=== PATIENT | female | born 1950 | race Caucasian/White ===

== ENCOUNTER 2018-09-23 02:35 | Observation (INO) | payer BC ==
[~2018-09-23] VITALS: Ht 157.5 cm; Wt 82.0 kg
[~2018-09-23 02:35] MED LIST: CALC600T7 PO; DOCU10CA PO; LEVO50TA45 PO; LORT1TAB PO; MULTCAP PO; NAPR-885 PO; OXYC-141 PO; PHEN15CA PO; TYLE325T5 PO; VITA100067 PO
[2018-09-23 03:00] LABS: BASO # 0.1 10^3/uL (0.0-0.2); BASO % 0.9 % (0.0-1.0); EOS # 0.3 10^3/uL (0.0-0.50); EOS % 3.1 % (0.0-3.0); HEMATOCRIT 45.5 % (36.0-47.0); HEMOGLOBIN 14.9 g/dl (12.0-15.5); LYMPH % 24.8 % (24.0-44.0); MEAN CORPUSCULAR HGB CONC 32.7 g/dl (32.0-36.5); MEAN CORPUSCULAR VOLUME 88.7 fl (80.0-96.0); MONO # 0.5 10^3/uL (0.0-0.8); MONO % 6.1 % (0.0-5.0); NEUTROPHILS # 5.2 10^3/uL (1.8-7.7); NEUTROPHILS % 64.5 % (36.0-66.0); PLATELET COUNT, AUTOMATED 350 10^3/uL (150-450); RED BLOOD COUNT 5.13 10^6/uL (4.00-5.40)
[2018-09-23] MEDS ORDERED: PANTOPRAZOLE 40MG INJ (PROTONIX) (C9113) IV ONE (03:15)
[2018-09-23] MEDS ORDERED: ONDANSETRON 4MG/2ML VIAL (J2405) IV ONE (03:15)
[2018-09-23] MEDS ORDERED: NS 1,000 ML IV ONE (03:15)
[2018-09-23 03:30] LABS: INR 1.06; PROTHROMBIN TIME 13.9 SECONDS (12.1-14.4)
[2018-09-23 03:31] LABS: PARTIAL THROMBOPLASTIN TIME 30.3 SECONDS (25.4-37.6)
[2018-09-23 03:39] LABS: ALBUMIN 3.2 GM/DL (3.2-5.2); ALT/SGPT 29 U/L (12-78); BILIRUBIN,DIRECT < 0.1 MG/DL (0.0-0.2); BILIRUBIN,TOTAL 0.1 MG/DL (0.2-1.0); BLOOD UREA NITROGEN 12 MG/DL (7-18); CARBON DIOXIDE LEVEL 28 MEQ/L (21-32); CHLORIDE LEVEL 108 MEQ/L (98-107); CREATININE FOR GFR 0.82 MG/DL (0.55-1.30); GLOMERULAR FILTRATION RATE > 60.0 (>45); GLUCOSE, FASTING 145 MG/DL (70-100); LIPASE 116 U/L (73-393); POTASSIUM SERUM 3.8 MEQ/L (3.5-5.1); SODIUM LEVEL 144 MEQ/L (136-145); TOTAL PROTEIN 7.2 GM/DL (6.4-8.2)
[2018-09-23] MEDS ORDERED: ZOFR4TAB16 PO (04:53)
[2018-09-23] MEDS ORDERED: PROT1TAB2 PO (04:53)
[2018-09-23] MEDS ORDERED: D5W/0.9% SODIUM CHLORIDE 1,000 ML IV SCH (05:37)
[2018-09-23] MEDS ORDERED: ACETAMINOPHEN TAB 650MG DOSE (2X325MG) PO PRN (05:45)
[2018-09-23] MEDS ORDERED: MAALOX 30 ML SUSP *UDC PO PRN (05:45)
[2018-09-23] MEDS ORDERED: MOM 30ML SUSPENSION UDC PO PRN (05:45)
[2018-09-23] MEDS ORDERED: VITMTA PO (05:48)
[2018-09-23] MEDS ORDERED: IBUP-1091 PO (05:48)
[2018-09-23] MEDS ORDERED: FISH1000 PO (05:48)
[2018-09-23] MEDS ORDERED: NP T30TA PO (05:48)
--- NOTE | 2018-09-23 06:06 | HPEPDOC ---
General Date of Admission September 23, 2018 at 02:36 Chief Complaint The patient is a 68-year-old female admitted with a reason for visit of Upper Gi Bleed. Source: Patient, RN/MD History of Present Illness Ms Monae is a 68 years old relatively healthy woman who presented to ER for evaluation of hematemesis. Pt states that she drink once a week, about 4-6 shots of vodka. She had 4 shots of Vodka last night; then she was nauseated and vomited bright red blood twice; total amount about half a cup. She denies abdominal pain, dizziness or any other problem. Pt denies previous hx/o hematemesis; denies excessive use of NSAID. She reports taking one pill of Motrin three days ago. in the ER, pt was mentally and hemodynamically stable; had no further episode of bleeding; Hb good at 14.9; guaiac negative. MD contacted Dr. Randolph who recommended observation in the hospital and endoscopy in the morning. Home Medications Scheduled Multivitamins (Thera M Plus Tablet) 1 Each Tablet, 1 TAB PO DAILY, (Reported) [place]-3 Fatty Acids/Fish Oil (Fish Oil 1,000 mg Capsule) 1 Each Capsule, 1,000 MG PO DAILY, (Reported) Thyroid,Pork (Sample Dye Mixer Thyroid) 30 Mg Tablet, 30 MG PO DAILY, (Reported) Scheduled PRN Ibuprofen (Ibuprofen) 200 Mg Tablet, 400 MG PO Q6H PRN for PAIN / FEVER, (Reported) Allergies Coded Allergies: Sulfa (Sulfonamide Antibiotics) (Verified Allergy, Unknown, rash, 09/23/18) TAPE (Verified Allergy, Unknown, rash, 09/23/18) oxycodone (Verified Adverse Reaction, Unknown, vomitting, 09/23/18) Past Medical History Medical History Hypothyroidism, Chronic Back pain Surgical History Cholecystectomy, Hysterectomy Family History Significant Family History: No pertinent family hx Social History * Smoker: Denies Alcohol: occationally Drugs: denies A-FIB/CHADSVASC A-FIB History Current/History of A-Fib/PAF?: No Review of Systems Constitutional: Denies: Chills, Fever Eyes: Denies: Pain ENT: Denies: Head Aches Skin: Denies: Rash, Lesions Pulmonary: Denies: Dyspnea, Cough Cardiovascular: Denies: Chest Pain Gastrointestinal: Reports: Nausea, Vomiting, Other Symptoms (hematemesis) Genitourinary: Denies: Dysuria Musculoskeletal: Reports: Back Pain (chronic); Denies: Neck Pain Neurological: Denies: Weakness Psych: Reports: Mood Normal; Denies: Anxiety Vital Signs Vital Signs Date Time Temp Pulse Resp B/P (MAP) Pulse Ox O2 Delivery O2 Flow Rate FiO2 09/23/18 05:35 84 18 143/73 (96) 96 09/23/18 04:30 98.8 09/23/18 02:55 Room Air Laboratory Data Labs 24H Laboratory Tests 2 09/23/18 02:51: Immature Granulocyte % (Auto) 0.6, White Blood Count 8.0, Red Blood Count 5.13, Hemoglobin 14.9, Hematocrit 45.5, Mean Corpuscular Volume 88.7, Mean Corpuscular Hemoglobin 29.0, Mean Corpuscular Hemoglobin Concent 32.7, Red Cell Distribution Width 12.9, Platelet Count 350, Neutrophils (%) (Auto) 64.5, Lymphocytes (%) (Auto) 24.8, Monocytes (%) (Auto) 6.1H, Eosinophils (%) (Auto) 3.1H, Basophils (%) (Auto) 0.9, Neutrophils # (Auto) 5.2, Lymphocytes # (Auto) 2.0, Monocytes # (Auto) 0.5, Eosinophils # (Auto) 0.3, Basophils # (Auto) 0.1, Nucleated Red Blood Cells % (auto) 0.0, Prothrombin Time 13.9, Prothromb Time International Ratio 1.06, Activated Partial Thromboplast Time 30.3, Anion Gap 8, Glomerular Filtration Rate > 60.0, Calcium Level 8.0L, Aspartate Amino Transf (AST/SGOT) 20, Alanine Aminotransferase (ALT/SGPT) 29, Alkaline Phosphatase 87, Total Bilirubin 0.1L, Direct Bilirubin < 0.1, Total Protein 7.2, Albumin 3.2, Albumin/Globulin Ratio 0.80L, Lipase 116 CBC/BMP Laboratory Tests 09/23/18 02:51 Red Blood Count 5.13, Mean Corpuscular Volume 88.7, Mean Corpuscular Hemoglobin 29.0, Mean Corpuscular Hemoglobin Concent 32.7, Red Cell Distribution Width 12.9, Neutrophils (%) (Auto) 64.5, Lymphocytes (%) (Auto) 24.8, Monocytes (%) (Auto) 6.1 H, Eosinophils (%) (Auto) 3.1 H, Basophils (%) (Auto) 0.9, Neutrophils # (Auto) 5.2, Lymphocytes # (Auto) 2.0, Monocytes # (Auto) 0.5, Eosinophils # (Auto) 0.3, Basophils # (Auto) 0.1 Assessment/Plan Hematemesis (pt denies heavy drinking or heavy NSAID use) - Keep on Observation - NPO; IV fluid; IV PPI; Thiamine - Repeat H/H - GI consult; Endoscopy in the morning - Further treatment plan based on endoscopy and whether pt has more episodes of bleeding - Hold home meds for now - CIWA monitoring as a caution Plan / VTE VTE Prophylaxis Ordered?: No VTE Exclusion Mechanical Proph: N/A:VTE Prophy Ordered VTE Exclusion Pharmacological: Active Bleeding Plan Anticipated Discharge: Home SHELIA GUDINO MD September 23, 2018 06:06
[2018-09-23] MEDS ORDERED: THIAMINE HCL 200 MG/2 ML VIAL (J3411) IV ONE (06:15)
[2018-09-23 07:52] VITALS: BP 164/75
[2018-09-23] MEDS ORDERED: PANT40TA3 PO (10:58)
--- NOTE | 2018-09-23 13:39 | DSES ---
DATE OF ADMISSION: 09/23/2018 DATE OF DISCHARGE (AGAINST MEDICAL ADVICE): 09/23/2018 The patient presented after hematemesis while consuming excessive alcohol. She was admitted by Dr. Pickering early this a.m. and was scheduled to have an endoscopy today nothing by mouth (n.p.o.) and was on IV proton pump inhibitor (PPI) therapy. Shortly upon arriving to [address] [place] [address], I was notified by nursing that the patient wished to leave the hospital against medical advice. I did urgently visit the patient and inform her that leaving the hospital while actively bleeding she would likely not make it far and would have to come back. I expressed to her that if she continues to bleed she will likely hemorrhage and and informed her that it is unclear if she is stable and strongly recommended against leaving or having an attempt to manage this from an outpatient setting. She demonstrated good understanding and asked appropriate questions. She still elected to leave the hospital against medical advice. She denied providing me an opportunity to arrange for safe disposition. I have advised her not taking ibuprofen and did send a script for pantoprazole to her pharmacy. I did advise her to followup with her primary care provider as soon as possible and that she would likely still need an upper endoscopy. I did advise her that should she have continued bleeding, lightheadedness, dizziness, or feeling unwell, that she should certainly return back to the emergency room for reevaluation. She demonstrated good understanding of this and unfortunately elected to leave the hospital against medical advice.
[2018-09-23] MEDS ORDERED: PANTOPRAZOLE 40MG INJ (PROTONIX) (C9113) IV SCH (18:00)
[2018-09-24] MEDS ORDERED: THIAMINE HCL 200 MG/2 ML VIAL (J3411) IV SCH (09:00)
== END 2018-09-23 09:19 | disposition left against medical advice (07) ==
LOC: M ED 02:35 → M ED INP 02:36 → M MSPAV 07:51
PROVIDERS: ADMIT Internal Medicine; ATTEND Internal Medicine
DX: K92.2 Gastrointestinal hemorrhage, unspecified (principal); Z53.20 Procedure and treatment not carried out because of patient's decision for unspecified reasons; E03.9 Hypothyroidism, unspecified; M54.5 Low back pain; Z79.899 Other long term (current) drug therapy; F10.10 Alcohol abuse, uncomplicated; Z88.2 Allergy status to sulfonamides; Z88.8 Allergy status to other drugs, medicaments and biological substances
CPT/HCPCS: 36415; 80048; 80076; 83690; 85025; 85610; 85730; 86850; 86900; 86901; 93041; 96361; 96374; 96375; 99285; C9113; J2405; J3411

== ENCOUNTER 2020-05-07 16:09 | Emergency (ER) | payer BC ==
[~2020-05-07] VITALS: Ht 157.5 cm; Wt 80.0 kg
[~2020-05-07 16:09] MED LIST changes: +CALC-212 PO; -CALC600T7 PO; +FISH1000 PO; +IBUP-1720 PO; +NP T30TA PO; +PANT40TA29 PO; +PROT1TAB2 PO; +VITMTA PO; +ZOFR4TAB16 PO
[2020-05-07] MEDS ORDERED: TETRACAINE 0.5% OPHTH SOLN 4ML OU ONE (17:30)
[2020-05-07] MEDS ORDERED: FLUORESCEIN OPHTH 1 MG STRIP OU ONE (17:30)
[2020-05-07] MEDS ORDERED: CIPROFLOXACIN 0.3% OPHTH SOLN 2.5ML OD ONE (17:45)
[2020-05-07] MEDS ORDERED: CIPR0.3S6 OD (17:48)
[2020-05-07 17:54] VITALS: BP 169/77
== END 2020-05-07 18:05 | disposition home or self-care (01) ==
LOC: M ED 16:09
DX: S05.01XA Injury of conjunctiva and corneal abrasion without foreign body, right eye, initial encounter (principal); W26.8XXA Contact with other sharp object(s), not elsewhere classified, initial encounter; Y92.019 Unspecified place in single-family (private) house as the place of occurrence of the external cause; Y93.89 Activity, other specified; Y99.9 Unspecified external cause status

== ENCOUNTER → 2020-05-27 | Outpatient (CLI) | payer BC ==
[~2020-05-27] MED LIST changes: +CIPR0.3S6 OD
== END ==
LOC: M LABSMTC 11:30
PROVIDERS: ATTEND Family Medicine
DX: Z20.822 Contact with and (suspected) exposure to COVID-19 (principal)

== ENCOUNTER → 2021-02-05 | Outpatient (CLI) | payer BC ==
--- NOTE | 2021-02-05 11:30 | REP ---
INDICATION: [facility] SCREEN MAMMO FOR MALIGNANT NEOPLASM OF BREAST. COMPARISON: Multiple TECHNIQUE: Digital screening mammography was carried out bilaterally in the CC and MLO projections and compared to the prior exams. Both 2D and 3D modalities were utilized. By history, the patient has no complaints of a palpable breast abnormality or other significant breast complaints. FINDINGS: The breasts are unchanged in size and shape. Stable benign calcifications are seen bilaterally. There is a potential area of asymmetry seen in the left breast at 12 o'clock. No other suspicious features are seen in either breast. The Volpara volumetric breast density pattern is b. IMPRESSION: BIRADS/ACR category 0 mammogram. Possible bryce asymmetry seen in the left breast at 12 o'clock for which diagnostic digital DBT spot compression views are recommended in the CC and MLO projections along with diagnostic ultrasonography if necessary. This patient's Tyrer-Cuzick lifetime breast cancer risk assessment score is 2.3%. This mammogram was interpreted with the aid of an FDA-approved computer-aided detection system. The patient states she had a clinical breast exam in over a year. The patient letter being requested is M0. RECOMMENDATION: As above <Electronically signed by Micheal Valencia > 02/05/21 1126
--- NOTE | 2021-02-05 16:23 | DEXAMM ---
INDICATION: OTHER DISORDER BONE DENSITY AND STRUCTURE UNSPEC SITE. L4-5 lumbar spine fusion hardware. COMPARISON: January 02, 2017 TECHNIQUE: Bone density was measured using dual-energy x-ray absorptionmetry (DEXA). FINDINGS: AP SPINE L1-L3 BMD 1.052 g/cm2 Young Adult T-Score -1.1 Age Matched Z-Score 0.6. LT FEMUR, TOTAL BMD 60.850 g/cm2 Young Adult T-Score -1.3 Age Matched Z-Score 0.1. LT NECK BMD 0.762 g/cm2 Young Adult T-Score -2.0 Age Matched Z-Score -0.4. RT FEMUR, TOTAL BMD 0.836 g/cm2 Young Adult T-Score -1.4 Age Matched Z-Score 0.0. RT NECK BMD 0.775 g/cm2 Young Adult T-Score -1.9 Age Matched Z-Score -0.3. IMPRESSION: There is low bone density of the spine. There is low bone density of the left hip. There is low bone density of the right hip. The density of the left hip has decreased 16.2% since initial exam on February 23, 2004. The density of the left hip has decreased 7.2% since most recent exam on January 02, 2017. The density of the right hip has decreased 15.5% since the initial exam on February 23, 2004. The density of the right hip has decreased 8.8% since the most recent exam on January 02, 2017. FOLLOW-UP: Recommendation for the next bone density exam: 2 years. <Electronically signed by Domenic Santiago > 02/05/21 [id number]
== END ==
LOC: M WHC 10:17
PROVIDERS: ATTEND Internal Medicine
DX: R92.8 Other abnormal and inconclusive findings on diagnostic imaging of breast (principal); M85.88 Other specified disorders of bone density and structure, other site; N63.21 Unspecified lump in the left breast, upper outer quadrant; M85.851 Other specified disorders of bone density and structure, right thigh; M85.852 Other specified disorders of bone density and structure, left thigh

== ENCOUNTER → 2021-02-26 | Outpatient (CLI) | payer BC ==
--- NOTE | 2021-02-26 09:05 | REP ---
INDICATION: LEFT BREAST ADD VIEWS. COMPARISON: 02/05/2021 as well as other prior exams. TECHNIQUE: Spot compression magnification tomographic images are performed the left breast as well as focused left breast ultrasound. FINDINGS: There is an area of architectural distortion approximately 4-5 cm posterior to the nipple slightly superior to the plane of the nipple. Real-time sonographic evaluation of the left breast performed with special attention paid to the region approximately 4-5 cm behind the nipple. No discrete cystic or solid nodule is seen in that region. IMPRESSION: BIRADS/ACR category 4, suspicious. There is an area of architectural distortion the left breast approximately 4-5 cm posterior to the nipple, slightly above the plane of the nipple. There is no sonographic correlate identified. Recommend stereotactic biopsy. This mammogram was interpreted with the aid of an FDA-approved computer-aided detection system. The patient letter being requested is M4. RECOMMENDATION: Recommend stereotactic biopsy left breast. <Electronically signed by Quinn Duron > 02/26/21 0901
== END ==
LOC: M WHC 07:29
PROVIDERS: ATTEND Internal Medicine
DX: R92.2 Inconclusive mammogram (principal)
CPT/HCPCS: 76642; 77065; G0279

== ENCOUNTER → 2021-03-22 | Outpatient (CLI) | payer BC ==
[~2021-03-22] MED LIST changes: +LEVO50TA5 PO
[2021-03-22 14:58] VITALS: BP 148/74
--- NOTE | 2021-03-22 15:10 | REP ---
INDICATION: STEREO BX L ABNORMAL MAMMO POST CLIP MAMMO. COMPARISON: 02/26/2021. TECHNIQUE: ML and CC views left breast following stereotactic biopsy. FINDINGS: HydroMARK clip is seen at the site of architectural distortion, which was biopsied today using stereotactic guidance. IMPRESSION: Successful stereotactic biopsy of an area of architectural distortion in the left breast, with appropriate biopsy clip placement. RECOMMENDATION: Clinical follow-up. <Electronically signed by Quinn Duron > 03/22/21 1374
--- NOTE | 2021-03-22 17:00 | REP ---
INDICATION: STEREO BX L ABNORMAL MAMMO POST CLIP MAMMO. COMPARISON: None. TECHNIQUE: The procedure was performed under the direct supervision of Dr. Duron. The patient has a history of an area of architectural distortion in the left breast approximately 4-5 cm posterior to the nipple slightly above the plane of the nipple seen on a previous mammogram dated 02/26/2021. The risks and benefits of the procedure were explained to the patient and informed consent was obtained. A craniocaudal approach was utilized. The area of architectural distortion was localized using stereotactic mammographic guidance. 10 mL of 1% Xylocaine was used as a local anesthetic. A 10 gauge, suction assisted Mammotome needle was inserted and 6 core biopsy samples were obtained. A marker clip(HydroMARK shape 4) was placed at the biopsy site. The patient tolerated the procedure well and there were no immediate complications. After the appropriate amount of monitored convalescence, the patient was discharged from the department. EBL: Less than 3 mL FINDINGS: None IMPRESSION: Stereotactic left breast biopsy with marker clip placement.(HydroMARK shape 4) <Electronically signed by Roel Cooper > 03/22/21 [id number] <Electronically signed by Quinn Duron > 03/22/21 [id number]
== END ==
LOC: M WHCPRO 12:15
PROVIDERS: ATTEND Internal Medicine
DX: D24.2 Benign neoplasm of left breast (principal)

== ENCOUNTER → 2021-06-04 | Outpatient (CLI) | payer BC ==
[~2021-06-04] MED LIST changes: -PHEN15CA PO; +PHEN15CA6 PO
== END ==
LOC: M WUC 14:38
PROVIDERS: ATTEND Internal Medicine
DX: M25.78 Osteophyte, vertebrae (principal); Z98.1 Arthrodesis status

== ENCOUNTER → 2021-08-28 | Outpatient (CLI) | payer BC ==
[~2021-08-28] MED LIST changes: +GASTROGRAFIN SOLUTION 30ML (Q9963) As Ordered ONE; +ISOVUE-370 76% 100ML VIAL As Ordered ONE
== END ==
LOC: M RAD 14:18
PROVIDERS: ATTEND Surgery
DX: K76.0 Fatty (change of) liver, not elsewhere classified (principal)
CPT/HCPCS: 74178; Q9963; Q9967

== ENCOUNTER → 2021-12-26 | Outpatient (CLI) | payer BC ==
[~2021-12-26] MED LIST changes: -GASTROGRAFIN SOLUTION 30ML (Q9963) As Ordered ONE; -ISOVUE-370 76% 100ML VIAL As Ordered ONE
== END ==
LOC: M WUC 09:49
PROVIDERS: ATTEND Internal Medicine
DX: I49.1 Atrial premature depolarization (principal)

== ENCOUNTER → 2022-02-04 | Outpatient (CLI) | payer BC ==
[~2022-02-04] MED LIST changes: +EUTH50TA; +VITA100093 PO
== END ==
LOC: M LABSMTC 09:06
PROVIDERS: ATTEND Anesthesiology
DX: Z01.812 Encounter for preprocedural laboratory examination (principal); Z20.822 Contact with and (suspected) exposure to COVID-19

== ENCOUNTER 2022-02-07 09:52 | Day surgery (SDC) | payer BC ==
[~2022-02-07] VITALS: Ht 157.5 cm; Wt 80.3 kg
[~2022-02-07 09:52] MED LIST changes: +NS 1,000 ML IV ONE
[2022-02-07] MEDS ORDERED: propofoL 200 MG/20 ML VIAL As Ordered ONE ×2 (11:06→11:14)
[2022-02-07 11:47] VITALS: BP 151/75
== END 2022-02-07 11:49 | disposition home or self-care (01) ==
LOC: M OPP 09:52
PROVIDERS: ATTEND Surgery
DX: Z12.11 Encounter for screening for malignant neoplasm of colon (principal); K57.30 Diverticulosis of large intestine without perforation or abscess without bleeding; Z79.1 Long term (current) use of non-steroidal anti-inflammatories (NSAID); Z79.899 Other long term (current) drug therapy; Z88.2 Allergy status to sulfonamides; Z88.5 Allergy status to narcotic agent; Z91.048 Other nonmedicinal substance allergy status; E03.9 Hypothyroidism, unspecified; I49.3 Ventricular premature depolarization

== ENCOUNTER → 2022-03-25 | Outpatient (CLI) | payer BC ==
[~2022-03-25] MED LIST changes: -NS 1,000 ML IV ONE
== END ==
LOC: M WHC 13:07
PROVIDERS: ATTEND Internal Medicine
DX: Z12.31 Encounter for screening mammogram for malignant neoplasm of breast (principal)

== ENCOUNTER → 2024-04-28 | Outpatient (CLI) | payer BC ==
[~2024-04-28] MED LIST changes: +CIPR0.3S37 OD; -CIPR0.3S6 OD
== END ==
LOC: M WHC 06:52
PROVIDERS: ATTEND Internal Medicine
DX: Z12.31 Encounter for screening mammogram for malignant neoplasm of breast (principal)

== ENCOUNTER → 2025-03-25 | Outpatient (REF) | payer BC | LOC: M LAB REF 12:27 | PROVIDERS: ATTEND Internal Medicine | DX: N95.2 Postmenopausal atrophic vaginitis (principal) ==

== ENCOUNTER → 2025-04-29 | Outpatient (CLI) | payer BC, MEDICARE | LOC: M WHC 12:25 | PROVIDERS: ATTEND Internal Medicine | DX: Z12.31 Encounter for screening mammogram for malignant neoplasm of breast (principal); M81.0 Age-related osteoporosis without current pathological fracture ==